=== PATIENT | female | born 1950 | race Caucasian/White ===

== ENCOUNTER 2016-11-20 09:35 | Emergency (ER) | payer BC, MEDICARE ==
[2016-11-20 09:50] VITALS: TEMP 98.7
[2016-11-20] MEDS: HYDROcodone 5MG/APAP 325MG 1 EA TAB PO ONE ×2 (09:55→10:29)
[2016-11-20] MEDS ORDERED: LIDOCAINE 1% 10 ML VIAL INJ ONE ×2 (10:09→11:02)
[2016-11-20] MEDS ORDERED: SULFA/TRIMETH 800/160 (DS) TAB 1 EA TAB PO ONE (10:42)
[2016-11-20] MEDS ORDERED: cefTRIAXone SODIUM 1 GM VIAL IM ONE (10:42)
[2016-11-20] MEDS ORDERED: TETANUS,DIPHTHERIA,PERTUSSIS 1 EA SYG IM ONE (10:42)
--- NOTE | 2016-11-20 10:52 | ED.PDOC ---
History of Present Illness - General Chief Complaint: Trauma Stated Complaint: crush injury to finger Time Seen by Provider: 11/20/16 09:39 Source: patient Exam Limitations: no limitations - History of Present Illness Initial Comments: the patient is a 66-year-old female presenting to the emergency room secondary to blunt trauma to the right distal thumb after slamming it in a car door just this morning. She still has flexion of the distal interphalangeal joint and no pain at the distal interphalangeal joint. The thumbnail has an acrylic nail on top of it. The base of it does appear to be displaced but the distal aspect does still appear to be intact. The wound actually does look clean. Estimated blood loss to this time approximately 10 cc. sensation does appear to be intact at the tip of the digit. No other injuries. Timing/Duration: momentarily Severity: moderate Improving Factors: nothing Worsening Factors: nothing Associated Symptoms: denies symptoms Allergies/Adverse Reactions: Allergies NO KNOWN ALLERGY Allergy (Verified 11/20/16 09:50) Home Medications: Ambulatory Orders Sulfa/Trimeth 800/160 (Ds) Tab [Bactrim DS Tab] 1 ea PO BID #10 tab 11/20/16 Review of Systems - Review of Systems Constitutional: States: no symptoms reported EENTM: States: no symptoms reported Respiratory: States: no symptoms reported Cardiology: States: no symptoms reported Gastrointestinal/Abdominal: States: no symptoms reported Genitourinary: States: no symptoms reported Musculoskeletal: States: see HPI Skin: States: see HPI Neurological: States: no symptoms reported Endocrine: States: no symptoms reported All other Systems: No Change from Baseline Past Medical History (General) - Patient Medical History Hx Thyroid Disease: Yes Surgical History: no surgical history - Vaccination History Hx Tetanus, Diphtheria Vaccination: - unknown Hx Influenza Vaccination: Yes Hx Pneumococcal Vaccination: No - Social History Hx Tobacco Use: No Hx Alcohol Use: Yes - occasional Hx Substance Use: No Hx Substance Use Treatment: No Hx Depression: No - Activities of Daily Living Hospice Agency (if applicable):: None - Female History Patient is a Female of Child Bearing Age (10 -59 yrs old): No Patient : No Family Medical History - Family History Mother Family History: Unknown Physical Exam - Physical Exam General Appearance: Alert, Comfortable Eye Exam: bilateral normal Ears, Nose, Throat: hearing grossly normal, normal ENT inspection, normal pharynx Respiratory: no respiratory distress, no accessory muscle use Cardiovascular/Chest: normal peripheral pulses, no edema Peripheral Pulses: radial,right: 2+, radial,left: 2+ Rectal Exam: deferred Back Exam: normal inspection Extremity: normal range of motion, no pedal edema, no calf tenderness, other - see history of present illness. Injury as to the distal right thumb only. The patient's sensory and motor functions are otherwise preserved. Neurologic: alert, normal mood/affect, oriented x 3 Skin Exam: normal color - with the exception of the trauma to the tip of the thumb of the right hand. There is blood seeping around the base of the nail. No other laceration. Comments: Vital Signs - 8 hr 11/20/16 09:40 Temperature 98.7 F Pulse Rate [ 81 pulse ox] Respiratory 20 Rate Blood Pressure 173/95 [Left Arm] O2 Sat by Pulse 94 L Oximetry Progress - Progress Progress: 11/20/16 10:54 the patient is a 66-year-old female presenting to the emergency room secondary to blunt trauma to the distal phalanx of the thumb of the right hand. the patient does have a comminuted fracture to the tuft of the distal phalanx. Flexion at the distal interphalangeal joint is preserved. Due to the lifting of the base of the nail, this is technically an open fracture, though I see no obvious fracture fragments exposed when looking underneath the nail. After risk and benefits of repair were explained patient agrees to proceed. wound is cleaned with saline and hydrogen peroxide after digital block is performed with 8 cc of Xylocaine without epinephrine. The dislodged base of the nail was put back in place. Pressure was held for hemostasis. Steri- Strips were used to hold the nail in place as a suture needle would not pass through the acrylic nail. no circumferential Steri-Strips were used. Dressing is applied. The patient was given 1 dose of IM Rocephin and 1 tablet on oral Bactrim along with her tetanus shot. The patient tolerated the procedure above well. She needs to follow up with her primary care doctor in the coming week. She needs to monitor for any evidence of infection. ER warnings were given for any acute worsening. She does need to try and avoid flexing the distal thumb for now. She can follow-up with orthopedics in 1-2 weeks to make sure no further intervention needs to be performed. She can expect the thumbnail to fall off in the coming weeks. - Results/Orders Results/Orders: x-ray right thumb shows a mildly comminuted fracture to the tuft of the thumb of the right hand. Departure - Departure Clinical Impression: Open fracture of tuft of distal phalanx of thumb Qualifiers: Encounter type: initial encounter Laterality: right Qualified Code(s): S62.521B - Displaced fracture of distal phalanx of right thumb, initial encounter for open fracture Disposition: Discharge to Home or Self Care Departure Forms: ED Discharge - Pt. Copy, Patient Portal Self Enrollment Instructions: DI for Finger Fracture Diet: regular diet Activity: no pushing/pulling with affected limb Referrals: Dakota Pantoja III, MD [Primary Care Provider] - 1-2 Weeks Prescriptions: Sulfa/Trimeth 800/160 (Ds) Tab [Bactrim DS Tab] 1 ea PO BID #10 tab Home Medications: Ambulatory Orders Sulfa/Trimeth 800/160 (Ds) Tab [Bactrim DS Tab] 1 ea PO BID #10 tab 11/20/16 Additional Instructions: the patient is a 66-year-old female presenting to the emergency room secondary to blunt trauma to the distal phalanx of the thumb of the right hand. the patient does have a comminuted fracture to the tuft of the distal phalanx. Flexion at the distal interphalangeal joint is preserved. Due to the lifting of the base of the nail, this is technically an open fracture, though I see no obvious fracture fragments exposed when looking underneath the nail. After risk and benefits of repair were explained patient agrees to proceed. wound is cleaned with saline and hydrogen peroxide after digital block is performed with 8 cc of Xylocaine without epinephrine. The dislodged base of the nail was put back in place. Pressure was held for hemostasis. Steri- Strips were used to hold the nail in place as a suture needle would not pass through the acrylic nail. no circumferential Steri-Strips were used. Dressing is applied. The patient was given 1 dose of IM Rocephin and 1 tablet on oral Bactrim along with her tetanus shot. The patient tolerated the procedure above well. She needs to follow up with her primary care doctor in the coming week. She needs to monitor for any evidence of infection. ER warnings were given for any acute worsening. She does need to try and avoid flexing the distal thumb for now. She can follow-up with orthopedics in 1-2 weeks to make sure no further intervention needs to be performed. She can expect the thumbnail to fall off in the coming weeks.
--- NOTE | 2016-11-20 10:53 | RAD ---
EXAM DESCRIPTION: Thumb,Right CLINICAL HISTORY: 66 yearsFemale, slammed tip in car door COMPARISON: None. IMPRESSION: 2 views of the right thumb demonstrate a mildly displaced oblique acute fracture in the distal tuft of the distal phalanx of the thumb. There is up to 1.5 mm of ulnar displacement of the distal fracture site. The remaining osseous structures appear intact. No dislocation. Generalized soft tissue swelling is present. Electronically signed by: Thad Mock MD 11/20/2016 10:53 AM CDT
[2016-11-20 11:29] VITALS: BP 147/80; O2SAT 96
== END 2016-11-20 11:27 | disposition home or self-care (01) ==
LOC: ER 09:35
DX: S62.521B Displaced fracture of distal phalanx of right thumb, initial encounter for open fracture (principal); E07.9 Disorder of thyroid, unspecified; Z23 Encounter for immunization; W23.0XXA Caught, crushed, jammed, or pinched between moving objects, initial encounter
CPT/HCPCS: 73140; J0696

== ENCOUNTER → 2017-02-13 | Outpatient (CLI) | payer BC, MEDICARE | END | disposition home or self-care (01) | LOC: GMAL 11:17 | PROVIDERS: ATTEND Family Medicine | DX: Z00.01 Encounter for general adult medical examination with abnormal findings (principal); E78.2 Mixed hyperlipidemia ==

== ENCOUNTER → 2017-02-28 | Outpatient (CLI) | payer BC, MEDICARE ==
--- NOTE | 2017-02-28 15:50 | RAD ---
EXAM DESCRIPTION: Hand,Right 3 Views CLINICAL HISTORY: 67 years Female, HAND PAIN COMPARISON: None. FINDINGS: 3 views of the right hand show no acute fracture or malalignment. There moderate polyarticular degenerative changes, worse at the first CMC joint. No radiopaque foreign body or soft tissue gas. No lytic or sclerotic bone lesion. IMPRESSION: Moderate polyarticular degenerative changes, worse at the first CMC joint. Electronically signed by: Derek Hadley MD 02/28/2017 3:50 PM CDT Workstation: [email or web address]
== END | disposition home or self-care (01) ==
LOC: RAD 08:01
PROVIDERS: ATTEND Orthopaedic Surgery
DX: M79.641 Pain in right hand (principal)

== ENCOUNTER → 2017-06-25 | Outpatient (CLI) | payer BC, MEDICARE | END | disposition home or self-care (01) | LOC: GMA 16:48 | PROVIDERS: ATTEND Nurse Practitioner Family | DX: N39.0 Urinary tract infection, site not specified (principal) ==

== ENCOUNTER → 2017-10-30 | Outpatient (CLI) | payer BC, MEDICARE | LOC: GMAL 10:21 | PROVIDERS: ATTEND Family Medicine | DX: D51.9 Vitamin B12 deficiency anemia, unspecified (principal) ==

== ENCOUNTER → 2018-07-31 | Outpatient (CLI) | payer BC, MEDICARE | LOC: GMAL 10:53 | PROVIDERS: ATTEND Family Medicine | DX: D51.9 Vitamin B12 deficiency anemia, unspecified (principal); E03.9 Hypothyroidism, unspecified; E55.9 Vitamin D deficiency, unspecified ==

== ENCOUNTER → 2018-08-29 | Outpatient (CLI) | payer BC, MEDICARE ==
--- NOTE | 2018-08-29 17:13 | MRI ---
EXAM DESCRIPTION: Lumbar Spine w/o Contrast : Magnetic Resonance Imaging. CLINICAL HISTORY: BACK PAIN COMPARISON: Radiographs of the sacrum and bilateral hips 08/19/2018. TECHNIQUE: Multiplanar, multiple standard sequences, non contrast MRI, lumbar spine. FINDINGS: L3 vertebral body is compressed at both endplates centrally more than anteriorly. Marrow edema more posterior than anterior in the vertebral body and also involving the bases of the pedicles bilaterally more left than right. Central vertebral body height 1.2 cm compared to 2.5 cm at L2. L3 posterior vertebral body height 2.1 cm compared to 2.4 cm at L2. Anterior vertebral body height 1.8 cm at L3 compared to 2.8 cm at L2. 5 mm retropulsion of the inferior endplate. AP canal diameter at this level 9 mm. 4 mm retropulsion superior endplate with AP canal diameter 10 mm. L3-4 disc desiccation with posterior disc bulge associated with the retropulsed inferior L3 endplate. Hypertrophy of the flavum ligaments and facet joints with arthrosis. Moderate right foraminal narrowing and moderate to severe left foraminal narrowing. Disc bulge more to the left of midline partially effacing the left subarticular recess. L2-3: Disc desiccation and posterior disc space loss with bulging posterior to the retropulsion of the L3 superior endplate resulting in anterolisthesis. Mild to moderate facet arthrosis and flavum ligament and facet joint hypertrophy contributing to canal stenosis. Bilateral foramina are patent. L4-5: Disc desiccation and minimal disc space loss. Anterior disc bulge with endplate ridging and Modic type II endplate reactive changes greater on the right with Schmorl's nodes in the endplates. Disc osteophyte complex encroaching on the right foramen abutting the exiting L4 nerve. Left foramen is patent. Posterior facet arthrosis and hypertrophy with the flavum ligaments more on the left. Mild canal narrowing. L5-S1: Mild to moderate disc space loss with desiccation and Modic type II endplate reactive changes and Schmorl's nodes greater on the left. Disc osteophyte complex encroaching on the left foramen abutting the exiting L5 nerve. Canal and right foramen are patent. L1-2: Minimal disc desiccation with anterior bulging. No posterior bulging. Disc space maintained. Minimal flavum ligament hypertrophy. Canal and foramina are patent. T12-L1: No disc bulging or desiccation. Disc space maintained. Posterior elements unremarkable. Canal and foramina are patent. No significant scoliosis. Paravertebral soft tissues with probable at edema bilaterally abutting the L3 vertebral body.. Otherwise normal marrow signal in the remaining vertebral bodies and the posterior elements. Vertebral bodies are not compressed at other levels. IMPRESSION: 1. Acute or subacute vertebral body compression fracture with retropulsion of the superior and inferior endplate mild central canal stenosis inferiorly and borderline mild central canal stenosis superiorly. Minimal marrow edema also involving the pedicles left more than right. No unstable fracture of the posterior elements. 2. Moderate to severe left foraminal narrowing at L3-4. Correlate for left L3 radiculopathy. Posterior disc bulge with partial effacement by disc of the left subarticular recess, correlate for left L4 radiculopathy. Bilateral foramina are patent at L2-3, with the disc bulging posterior to the retropulsion of the superior endplate, resulting in anterolisthesis. 3. Anterior and right side moderate spondylosis at L4-5 with disc spur complex encroaching on the right foramen abutting the exiting right L4 nerve. 4. Disc osteophyte complex at L5-S1 with moderate spondylosis encroaching on the left foramen abutting the exiting left L5 nerve. Electronically signed by: Russell Ybarra MD 08/29/2018 5:11 PM [employer]
== END ==
LOC: MRI 09:42
PROVIDERS: ATTEND Family Medicine
DX: M48.56XA Collapsed vertebra, not elsewhere classified, lumbar region, initial encounter for fracture (principal); M51.86 Other intervertebral disc disorders, lumbar region; M47.896 Other spondylosis, lumbar region

== ENCOUNTER → 2018-09-02 | Outpatient (CLI) | payer BC, MEDICARE ==
--- NOTE | 2018-09-02 17:22 | MRI ---
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 Degenerative disc disease L4-5 and L5-S1. No active sacroiliitis. Diffuse annular disc bulge/protrusion L3-4. See separate MRI lumbar spine. No fracture or destructive lesion of the sacrum. No pelvic mass or pathologic adenopathy. IMPRESSION: Degenerative disc disease lower lumbar spine Disc protrusion L3-4 No active sacroiliitis fracture or destructive lesion Electronically signed by: Jett Arellano MD 09/02/2018 5:20 PM [facility]
== END ==
LOC: MRI 10:58
PROVIDERS: ATTEND Family Medicine
DX: M51.36 Other intervertebral disc degeneration, lumbar region (principal); M51.86 Other intervertebral disc disorders, lumbar region

== ENCOUNTER → 2019-01-26 | Outpatient (CLI) | payer BC, MEDICARE | LOC: GMAL 11:49 | PROVIDERS: ATTEND Family Medicine | DX: E55.9 Vitamin D deficiency, unspecified (principal); E78.2 Mixed hyperlipidemia; Z79.899 Other long term (current) drug therapy ==

== ENCOUNTER → 2020-02-10 | Outpatient (CLI) | payer BC, MEDICARE | LOC: GMAL 14:56 | PROVIDERS: ATTEND Family Medicine | DX: D51.9 Vitamin B12 deficiency anemia, unspecified (principal); E03.9 Hypothyroidism, unspecified; E55.9 Vitamin D deficiency, unspecified; Z79.899 Other long term (current) drug therapy ==

== ENCOUNTER → 2020-05-30 | Outpatient (CLI) | payer BC, MEDICARE | LOC: GMAL 11:38 | PROVIDERS: ATTEND Family Medicine | DX: D51.9 Vitamin B12 deficiency anemia, unspecified (principal); R94.5 Abnormal results of liver function studies; E78.2 Mixed hyperlipidemia ==